=== PATIENT | female | born 2000 | race American Indian/Alaskan Native ===

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

== ENCOUNTER 2021-11-21 02:05 | Emergency (ER) | payer BC ==
[2021-11-21 02:47] LABS: Bilirubin,Urine NEG (Negative); Blood,Urine NEG (Negative); Color,Urine Yellow (Yellow)
[2021-11-21 02:51] LABS: Mucus,Urine 1+ /HPF; RBC,Urine < 1.0 /HPF (0.0-6.0)
[2021-11-21 02:56] LABS: Amphetamine Screen,Urine PRESUMPTIVE NEGATIVE; Benzodiazepines Screen,Urine PRESUMPTIVE NEGATIVE; Cannabinoid Screen,Urine PRESUMPTIVE POSITIVE; Cocaine Screen,Urine PRESUMPTIVE NEGATIVE; Methadone Screen,Urine PRESUMPTIVE NEGATIVE; Opiate Screen,Urine PRESUMPTIVE NEGATIVE
[2021-11-21 03:23] LABS: Basophils # (Auto) 0.2 K/mm3 (0.0-0.1); Basophils % (Auto) 1.9 % (0.0-1.8); Blood Urea Nitrogen 7 mg/dL (7-17); Calcium 9.8 mg/dL (8.4-10.2); Eosinophils # (Auto) 0.1 K/mm3 (0.0-0.4); Eosinophils % (Auto) 0.5 % (0.0-4.3); Hemoglobin 12.4 gm/dl (10.1-14.3); Hemolysis Index 6; Lymphocytes # (Auto) 2.1 K/mm3 (1.2-5.4); Lymphocytes % (Auto) 20.3 % (13.4-35.0); Mean Corpuscular HGB Conc 32 % (30-34); Mean Corpuscular Volume 83 fl (79-97); Monocytes # (Auto) 0.7 K/mm3 (0.0-0.8); Monocytes % (Auto) 7.3 % (0.0-7.3); Platelet Count 358 K/mm3 (140-440); Red Blood Count 4.71 M/mm3 (3.65-5.03); Red Cell Distribution Width 15.1 % (13.2-15.2)
[2021-11-21 03:30] LABS: BUN/Creatinine Ratio 12
--- NOTE | 2021-11-21 03:41 | Emergency Department Report ---
ED Psych HPI - General Chief Complaint: Psych Stated Complaint: SCHIZOAFFECTIVE DISORDER Time Seen by Provider: 11/21/21 03:19 Source: patient Mode of arrival: Ambulatory - History of Present Illness Initial Comments: Patient is a 21-year-old female with history of schizoaffective disorder presenting the ED with complaint of auditory hallucinations/seeing evil spirits. States this makes her want to hurt people. Denies SI. - Related Data Allergies Allergy/AdvReac Type Severity Reaction Status Date / Time No Known Allergies Allergy Unverified 11/21/21 02:22 ED Review of Systems ROS: Stated complaint: SCHIZOAFFECTIVE DISORDER Other details as noted in HPI Constitutional: denies: chills, fever Respiratory: denies: cough, shortness of breath, wheezing Cardiovascular: denies: chest pain, palpitations Gastrointestinal: denies: abdominal pain, nausea, diarrhea Genitourinary: denies: urgency, dysuria, discharge Musculoskeletal: denies: back pain, joint swelling, arthralgia Skin: denies: rash, lesions Neurological: denies: headache, weakness, paresthesias Psychiatric: auditory hallucinations Hematological/Lymphatic: denies: easy bleeding, easy bruising ED Past Medical Hx - Past Medical History Hx Psychiatric Treatment: Yes - Social History Smoking Status: Unknown if ever smoked Substance Use Type: None ED Physical Exam - General Limitations: No Limitations General appearance: alert, in no apparent distress, obese - Head Head exam: Present: atraumatic, normocephalic - Respiratory Respiratory exam: Present: normal lung sounds bilaterally. Absent: respiratory distress - Cardiovascular Cardiovascular Exam: Present: regular rate, normal rhythm, normal heart sounds - GI/Abdominal GI/Abdominal exam: Present: soft. Absent: distended, tenderness - Neurological Exam Neurological exam: Present: alert, oriented X3 - Psychiatric Psychiatric exam: Present: normal affect, normal mood - Skin Skin exam: Present: warm, dry, intact, normal color ED Course Vital Signs 11/21/21 11/21/21 11/21/21 02:10 03:22 12:37 Temperature 99.5 F 98.5 F Pulse Rate 85 74 Respiratory 19 18 Rate Blood Pressure 153/98 135/63 [Right] O2 Sat by Pulse 100 96 98 Oximetry ED Medical Decision Making - Lab Data Result diagrams: 11/21/21 02:51 11/21/21 02:51 Critical care attestation.: If time is entered above; I have spent that time in minutes in the direct care of this critically ill patient, excluding procedure time. ED Disposition Clinical Impression: Auditory hallucinations Disposition: 30 STILL A PATIENT Is pt being admited?: No Condition: Stable
--- NOTE | 2021-11-21 10:57 | Consultation ---
History of Present Illness - Reason for Consult Consult date: 11/21/21 Reason for consult: psychosis - History of Present Psychiatric Illness The patient was seen today. She is acutely psychotic. The patient says she is seeing evil spirits in people's face. She says "It makes me want to hurt somebody." She says she is hearing voices trying to attack her. She says "they are saying Bi*ch, I'm going to kill you." When asked was she suicidal, the patient stares at me and says "I gotta make a decision and not be selfish." The patient then says "I've thought about it." PAST PSYCHIATRIC HISTORY: Diagnoses: schizoaffective Suicide attempts or Self-harm behavior: Denies Prior psychiatric hospitalizations: Yes Substance Abuse history: Denies Previous psychiatric medications tried: abilify, cogentin, trazodone Outpatient treatment: Yes PAST MEDICAL HISTORY: None reported Family Psychiatric History: None reported SOCIAL HISTORY Marital Status: Single Living Arrangements: with parents Employment Status: Unemployed Access to guns/weapons: Denies Education: History of Abuse: Denies Legal History: Denies REVIEW OF SYSTEMS Constitutional: Negative for weight loss ENT: Negative for stridor Respiratory: Negative for cough or hemoptysis All other systems reviewed and are negative MENTAL STATUS EXAMINATION General Appearance and Behavior: Age appropriate, wearing appropriate clothes, good eye contact Cooperation: Uncooperative Psychomotor Behavior: normal Mood: depressed Affect and affective range: congruent with stated mood Thought Process: illogical Thought Content: hallucinations, paranoid Speech: Normal volume, Regular rate and rhythm Suicidal Ideation: Yes Homicidal Ideation: Yes Hallucination: Auditory Delusions: Yes Impulse Control: Limited Insight and Judgment: Limited Memory: Normal Attention: attentive Orientation: a/o x 3 Diagnoses: Schizoaffective Disorder Treatment Plan 1013 Abilify 5mg po daily Prozac 10mg po daily Trazodone 50mg po qhs Depakote DR 125mg po BID Risks, benefits and alternatives of medications discussed with the patient, questions answered and consent obtained from patient. PSYCHOTHERAPY: Supportive psychotherapy provided MEDICAL: Per primary team DELIRIUM PRECAUTIONS: Please re-orient patient frequently, keep lights on during the day, and minimize benzodiazepines and opiates as these medications could worsen patient's confusion. STABLE MANAGER: Defer to primary DISPOSITION: Recommend acute inpatient psychiatric hospitalization. FOLLOW-UP: Will follow Case staffed with Dr. Dutta Medications and Allergies Allergies Allergy/AdvReac Type Severity Reaction Status Date / Time No Known Allergies Allergy Unverified 11/21/21 02:22 Mental Status Exam - Vital signs Last Vital Signs Temp 99.5 F 11/21/21 02:10 Pulse 85 11/21/21 02:10 Resp 19 11/21/21 02:10 BP 153/98 11/21/21 02:10 Pulse Ox 96 11/21/21 03:22 Results Result Diagrams: 11/21/21 02:51 11/21/21 02:51 Abnormal lab results 11/21/21 11/21/21 11/21/21 Range/Units 02:51 02:51 02:51 MCH 26 L (28-32) pg Baso % (Auto) 1.9 H (0.0-1.8) % Baso # (Auto) 0.2 H (0.0-0.1) K/mm3 Glucose 106 H (65-100) mg/dL Salicylates < 0.3 L (2.8-20.0) mg/dL Acetaminophen (10.0-30.0) ug/mL 11/21/21 Range/Units 02:51 MCH (28-32) pg Baso % (Auto) (0.0-1.8) % Baso # (Auto) (0.0-0.1) K/mm3 Glucose (65-100) mg/dL Salicylates (2.8-20.0) mg/dL Acetaminophen 5.0 L (10.0-30.0) ug/mL All other labs normal.
[2021-11-21] MEDS ORDERED: BENZTROPINE 0.5 MG TAB PO SCH (11:00)
[2021-11-21] MEDS ORDERED: ARIPiprazole 5 MG TAB PO SCH (11:00)
[2021-11-21] MEDS ORDERED: DIVALPROEX DR 125 MG TAB PO SCH (12:00)
--- NOTE | 2021-11-21 12:00 | Event Note ---
Date: 11/21/21 S: No events reported overnight O: Vital Signs - 24 hr 11/21/21 11/21/21 02:10 03:22 Temperature 99.5 F Pulse Rate 85 Respiratory 19 Rate Blood Pressure 153/98 [Right] O2 Sat by Pulse 100 96 Oximetry A: Schizoaffective disorder P: 1013/awaiting inpatient psych
[2021-11-21 12:38] VITALS: BP 135/63
[2021-11-21] MEDS ORDERED: traZODone 50 MG TAB PO SCH (22:00)
== END 2021-11-21 17:40 | disposition still patient (30) ==
LOC: ED 02:05
DX: R44.0 Auditory hallucinations (principal); Z13.30 Encounter for screening examination for mental health and behavioral disorders, unspecified; Z20.822 Contact with and (suspected) exposure to COVID-19
CPT/HCPCS: 36415; 80048; 80307; 81001; 85025; 99285; U0003; 80320; G0480